=== PATIENT | female | born 1990 | race Two or more races ===

== ENCOUNTER 2025-02-16 09:06 | Outpatient (CLI) | payer MEDICAID ==
[2025-02-16 09:32] LABS: Hematocrit 41.4 % (36.0-46.0); Hemoglobin 13.7 g/dL (12.2-16.2); Mean Corpuscular Hemoglobin 29.0 pg (28.0-32.0); Mean Corpuscular Volume 87.4 fL (80.0-100.0); Nucleated Red Blood Cells % 0.1 %
[2025-02-16 10:03] LABS: Alanine Aminotransferase 21 U/L (7-40); Alkaline Phosphatase 94 U/L (46-116); Anion Gap 9 (5-15); BUN/Creatinine Ratio 5.9 (10.0-20.0); Calcium 9.3 mg/dL (8.7-10.4); Carbon Dioxide 25 mmol/L (20-31); Glucose 89 mg/dL (74-106); Potassium 4.0 mmol/L (3.5-5.1); Sodium 142 mmol/L (136-145); Total Protein 7.7 g/dL (5.7-8.2)
[2025-02-16 10:04] LABS: Beta HCG, Quantitative 0.5 mIU/mL (1.5-4.2)
[2025-02-16 10:05] LABS: Albumin 4.4 g/dL (3.2-4.8); Bilirubin, Total 0.4 mg/dL (0.2-1.0); Blood Urea Nitrogen 6 mg/dL (9-23); Chloride 108 mmol/L (98-107)
[2025-02-16 10:07] LABS: Thyroid Stimulating Hormone 1.35 uIU/mL (0.55-4.78)
[2025-02-16 11:08] LABS: Follicle Stimulating Hormone 8.28 IU/L (SEE BELOW)
[2025-02-16 11:09] LABS: Free T4 (Free Thyroxine) 0.85 ng/dL (0.89-1.76)
[2025-02-17 15:07] LABS: Chlamydia Trachomatis, NAA Negative (Negative); Neisseria gonorrhoeae, NAA Negative (Negative)
== END 2025-02-16 17:00 | disposition home or self-care (01) ==
LOC: LAB 09:06
DX: Z11.3 Encounter for screening for infections with a predominantly sexual mode of transmission (principal); N92.0 Excessive and frequent menstruation with regular cycle
CPT/HCPCS: 36415; 80053; 82670; 83001; 83002; 83036; 83525; 84144; 84146; 84270; 84402; 84403; 84439; 84443; 84702; 85025; 86703; 86780; 87340; 87902